=== PATIENT | male | born 1995 | race Caucasian/White ===

== ENCOUNTER 2021-05-27 10:30 | Emergency (ER) | payer OTHER ==
[~2021-05-27] VITALS: Ht 170.2 cm; Wt 68.0 kg
[2021-05-27] MEDS ORDERED: KETOROLAC 30MG/ML VIAL IV STA (11:22)
[2021-05-27 11:37] LABS: BASOPHILS % 0.4 % (0.0-2.0); HEMOGLOBIN. 14.9 g/dL (14.0-18.0); MEAN CORPUSCULAR VOLUME 87.7 fL (80.0-94.0); MONOCYTES % 5.7 % (2.0-8.0); NEUTROPHILS % 62.9 % (40.0-76.0); PLATELET 189 x1000/uL (130-400); RED BLOOD CELL COUNT 4.79 mill/uL (4.7-6.1); RED CELL DISTRIBUTION WIDTH 12.4 % (11.6-14.6)
[2021-05-27 12:31] LABS: CHLORIDE 109 mEq/L (98-107)
[2021-05-27] MEDS ORDERED: TOPUD PO (12:36)
[2021-05-27 13:21] VITALS: BP 121/72
== END 2021-05-27 13:26 | disposition home or self-care (01) ==
LOC: ER 10:44
DX: R07.89 Other chest pain (principal); F17.290 Nicotine dependence, other tobacco product, uncomplicated
CPT/HCPCS: 36415; 71045; 80053; 83880; 84484; 85025; 93005; 96374; 99285; J1885